=== PATIENT | female | born 1960 | race Caucasian/White ===

== ENCOUNTER 2022-09-01 20:58 | Inpatient (IN) | payer SELFPAY ==
[2022-09-01] MEDS ORDERED: cefTRIAXone 2 GM in Sodium Chloride 0.9% 100 ML IV ONE (21:17)
[2022-09-01] MEDS ORDERED: Vancomycin 2 GM in Dextrose 5% in Water 250 ML IV ONE ×4 (21:17→23:15)
[2022-09-01] MEDS ORDERED: Sodium Chloride 0.9% 1,000 ML IV ONE (21:17)
[2022-09-01] MEDS ORDERED: Sodium Chloride 0.9% 10 ML Syringe FLUSH PRN (21:17)
[2022-09-01] MEDS ORDERED: Albuterol/Ipratropium 3.0-0.5 MG/3 ML Neb Soln NEB ONE (21:20)
[2022-09-01 22:10] LABS: CORONAVIRUS COVID-19 NAA NEGATIVE (NEGATIVE)
[2022-09-01] MEDS ORDERED: Acetaminophen 325 MG Tab PO PRN (23:42)
[2022-09-01] MEDS ORDERED: Sodium Chloride 0.9% 1,000 ML IV SCH (23:45)
[2022-09-01] MEDS ORDERED: cefTRIAXone 2 GM in Sodium Chloride 0.9% 100 ML IV SCH (23:45)
[2022-09-02] MEDS: Acetaminophen 325 MG Tab PO PRN (04:29)
[2022-09-02] MEDS: Albuterol/Ipratropium 3.0-0.5 MG/3 ML Neb Soln NEB PRN (04:53)
[2022-09-02] MEDS: Enoxaparin 40 MG/0.4 ML Syringe SUBCUT SCH (06:45)
[2022-09-02] MEDS: Sodium Chloride 0.9% 1,000 ML IV SCH ×4 (06:46→22:17)
[2022-09-02] MEDS: Lisinopril 20 MG Tab PO SCH (08:42)
[2022-09-02] MEDS: Hydrochlorothiazide 12.5 MG Cap PO SCH (08:43)
[2022-09-02] MEDS: cefTRIAXone 2 GM in Sodium Chloride 0.9% 100 ML IV SCH (21:38)
[2022-09-03] MEDS: guaiFENesin/Dextromethorphan 100-10 MG/5 ML Soln 5 ML Cup PO PRN ×2 (01:15→22:48)
[2022-09-03] MEDS: Enoxaparin 40 MG/0.4 ML Syringe SUBCUT SCH (05:32)
[2022-09-03] MEDS: Sodium Chloride 0.9% 1,000 ML IV SCH ×3 (05:32→23:01)
[2022-09-03] MEDS: Albuterol/Ipratropium 3.0-0.5 MG/3 ML Neb Soln NEB PRN ×2 (08:13→22:11)
[2022-09-03] MEDS: Lisinopril 20 MG Tab PO SCH (09:43)
[2022-09-03] MEDS: Hydrochlorothiazide 12.5 MG Cap PO SCH (09:43)
[2022-09-03] MEDS: Acetaminophen 325 MG Tab PO PRN (15:23)
[2022-09-03] MEDS: cefTRIAXone 2 GM in Sodium Chloride 0.9% 100 ML IV SCH (22:48)
[2022-09-04] MEDS: guaiFENesin/Dextromethorphan 100-10 MG/5 ML Soln 5 ML Cup PO PRN (04:22)
[2022-09-04] MEDS: Enoxaparin 40 MG/0.4 ML Syringe SUBCUT SCH (07:48)
[2022-09-04] MEDS: Lisinopril 20 MG Tab PO SCH (08:34)
[2022-09-04] MEDS: Hydrochlorothiazide 12.5 MG Cap PO SCH (08:35)
[2022-09-04] MEDS ORDERED: Potassium Chloride 20 MEQ Tab.ER PO SCH (09:00)
== END 2022-09-04 13:21 | disposition home or self-care (01) | DRG 871 ==
LOC: JD.ED 20:58 → JD.MS 09-02 00:22
PROVIDERS: ADMIT Internal Medicine; ATTEND Internal Medicine
DX: A41.9 Sepsis, unspecified organism (principal); J18.9 Pneumonia, unspecified organism; J96.01 Acute respiratory failure with hypoxia; Z20.822 Contact with and (suspected) exposure to COVID-19; I10 Essential (primary) hypertension; Z79.52 Long term (current) use of systemic steroids; Z79.899 Other long term (current) drug therapy
CPT/HCPCS: 0241U; 36415; 71046; 71046-26; 80053; 81001; 83605; 83735; 85007; 85025; 85027; 85610; 86140; 87040; 94640; 94761; 99285; A9270-GY; J0696; J1650; J3370; J3490; J7030; J7060; J7620-GY

== ENCOUNTER 2022-09-30 08:51 | Day surgery (SDC) | payer SELFPAY ==
[~2022-09-30 08:51] MED LIST: Lactated Ringers 1,000 ML IV SCH; Lidocaine 1%/Sod Bicarbonate in NS 8.4% 1 ML Syringe IDERM PRN; Sodium Chloride 0.9% 10 ML Syringe FLUSH PRN; Sodium Chloride 0.9% 10 ML Syringe FLUSH SCH
[2022-09-30] MEDS ORDERED: fentaNYL 100 MCG/2 ML SDV ONE (10:33)
[2022-09-30] MEDS ORDERED: Propofol 200 MG/20 ML SDV ONE (10:33)
[2022-09-30] MEDS ORDERED: Lidocaine 1% 4 ML ONE (10:33)
[2022-09-30] MEDS ORDERED: Midazolam 1 MG/ML 2 ML SDV ONE (10:33)
== END 2022-09-30 11:39 | disposition home or self-care (01) ==
LOC: JD.SDS 08:51
PROVIDERS: ATTEND Surgery
DX: Z12.11 Encounter for screening for malignant neoplasm of colon (principal); K57.30 Diverticulosis of large intestine without perforation or abscess without bleeding; E66.9 Obesity, unspecified; R73.03 Prediabetes; E55.9 Vitamin D deficiency, unspecified; I10 Essential (primary) hypertension; Z79.899 Other long term (current) drug therapy; Z79.84 Long term (current) use of oral hypoglycemic drugs; Z98.890 Other specified postprocedural states; Z68.31 Body mass index [BMI] 31.0-31.9, adult
CPT/HCPCS: 00812; 82947; J2250; J2704; J3010; J3490; J7120